=== PATIENT | male | born 1990 | race Two or more races ===

== ENCOUNTER 2018-07-31 14:57 | Emergency (ER) | END 2018-07-31 17:25 | disposition home or self-care (01) ==

== ENCOUNTER 2018-10-24 12:48 | Emergency (ER) | payer OTHER ==
[~2018-10-24] VITALS: Ht 172.7 cm; Wt 95.5 kg
[~2018-10-24 12:48] MED LIST: AZIT250T PO; IBUP-1542 PO; ONDA8TAB14 PO; TRAM50TA2 PO
[2018-10-24 12:56] VITALS: Ht 172.7 cm; Wt 95.5 kg
[2018-10-24 14:01] VITALS: BP 136/95; PULSE 88; RESP 18
--- NOTE | 2018-10-24 15:02 | ERD ---
ER Documentation Chief Complaint Chief Complaint N/V AND ABD PAIN WITH GLUCOSE 56 UPON RESCUE ARRIVAL HPI Patient is a 28-year-old male with stomach issues who presents with low blood sugar. The patient was brought in by ambulance. He was at work and felt nauseous and then had one episode of vomiting. His symptoms got worse and then he passed out and fell to his buttocks. He did eat breakfast this morning but no lunch. His blood sugar was 56 per paramedics and they gave him oral glucose. He does have a primary doctor. ROS All systems reviewed and are negative except as per history of present illness. Medications Home Meds Active Scripts Tramadol HCl (Tramadol HCl) 50 Mg Tablet, 50 MG PO Q4 PRN for PAIN, #15 TAB Prov:PERFECTO NUNEZ MD 07/31/18 Ondansetron (Ondansetron Odt) 8 Mg Tab.rapdis, 8 MG PO Q6H PRN for NAUSEA AND/OR VOMITING, #10 TAB Prov:PERFECTO NUNEZ MD 07/31/18 Ibuprofen* (Motrin*) 600 Mg Tab, 600 MG PO Q6H PRN for PAIN AND OR ELEVATED TEMP, #30 TAB Prov:ALEXIA SHEEHAN MD 05/02/16 Azithromycin* (Zithromax*) 250 Mg Tablet, 250 MG PO .ZPACK DIRECTED, #6 TAB TAKE 500 MG (2 TABS) THE FIRST DAY THEN 250 MG (1 TAB) DAYS 2-5 Prov:ALEXIA SHEEHAN MD 05/02/16 Allergies Allergies: Coded Allergies: No Known Allergy (Unverified , 10/24/18) PMhx/Soc History of Surgery: Yes (INGUINAL HERNIA) Anesthesia Reaction: No Hx Neurological Disorder: No Hx Respiratory Disorders: No Hx Cardiac Disorders: No Hx Psychiatric Problems: No Hx Miscellaneous Medical Probl: Yes (GERD) Hx Alcohol Use: Yes (social) Hx Substance Use: Yes (marijuana) Hx Tobacco Use: Yes Smoking Status: Current every day smoker FmHx Family History: diabetes Physical Exam Vitals Vital Signs Date Temp Pulse Resp B/P (MAP) Pulse Ox O2 O2 Flow FiO2 Time Delivery Rate 10/24/18 98.0 88 18 136/95 99 Room Air 14:01 (109) 10/24/18 98.0 62 16 136/83 98 12:56 (100) Physical Exam Const: No acute distress Head: Atraumatic Eyes: Normal Conjunctiva ENT: Normal External Ears, Nose and Mouth. Neck: Full range of motion. No meningismus. Resp: Clear to auscultation bilaterally Cardio: Regular rate and rhythm, no murmurs Abd: Soft, non tender, non distended. Normal bowel sounds Skin: No petechiae or rashes Back: No midline or flank tenderness Ext: No cyanosis, or edema Neur: Awake and alert, cranial nerves II through XII intact, strength is 5 out of 5 in all 4 extremities Psych: Normal Mood and Affect Result Diagram: 10/24/18 1324 10/24/18 1324 Results 24 hrs Laboratory Tests Test 10/24/18 12:52 10/24/18 13:24 10/24/18 13:59 Bedside Glucose 91 mg/dL 100 mg/dL White Blood Count 9.0 10^3/ul Red Blood Count 5.18 10^6/ul Hemoglobin 16.2 g/dl Hematocrit 46.3 % Mean Corpuscular Volume 89.4 fl Mean Corpuscular Hemoglobin 31.3 pg Mean Corpuscular Hemoglobin Concent 35.0 g/dl Red Cell Distribution Width 12.0 % Platelet Count 226 10^3/UL Mean Platelet Volume 9.4 fl Immature Granulocytes % 0.600 % Neutrophils % 70.5 % Lymphocytes % 22.4 % Monocytes % 4.9 % Eosinophils % 0.9 % Basophils % 0.7 % Nucleated Red Blood Cells % 0.0 /100WBC Immature Granulocytes # 0.050 10^3/ul Neutrophils # 6.4 10^3/ul Lymphocytes # 2.0 10^3/ul Monocytes # 0.4 10^3/ul Eosinophils # 0.1 10^3/ul Basophils # 0.1 10^3/ul Nucleated Red Blood Cells # 0.0 10^3/ul Sodium Level 141 mmol/L Potassium Level 4.2 mmol/L Chloride Level 102 mmol/L Carbon Dioxide Level 29 mmol/L Anion Gap 10 Blood Urea Nitrogen 18 mg/dl Creatinine 0.86 mg/dl Est Glomerular Filtrat Rate mL/min > 60 mL/min Glucose Level 100 mg/dl Calcium Level 10.1 mg/dl Procedures/MDM Smoking Cessation Therapy: Pt. was lectured for greater than 3 minutes on the health risks of continued smoking and the benefits of cessation. Patient is a 28-year-old male presents with hypoglycemia. Laboratory studies were normal in the emergency department. He has no signs of stroke. He does not take insulin or other diabetic medications as he does not have a history of diabetes. The patient will be discharged at this time but will need close follow-up with his primary doctor. I encouraged him to have frequent meals throughout the day to avoid hypoglycemia in the future. Departure Diagnosis: Primary Impression: Hypoglycemia Condition: Fair Patient Instructions: Hypoglycemia, Non Diabetic Referrals: Dr. Avina Additional Instructions: Call your primary care doctor TOMORROW for an appointment during the next 1-2 days.See the doctor sooner or return here if your condition worsens before your appointment time. ALEXIA SHEEHAN MD Oct 24, 2018 15:02
== END 2018-10-24 14:31 | disposition home or self-care (01) ==
LOC: E/R 12:48
DX: E16.2 Hypoglycemia, unspecified (principal); F17.210 Nicotine dependence, cigarettes, uncomplicated
CPT/HCPCS: 80048; 82962; 85025; Z7502; 99283

== ENCOUNTER 2019-05-04 11:03 | Emergency (ER) | payer OTHER ==
[~2019-05-04] VITALS: Ht 172.7 cm; Wt 100.3 kg
[~2019-05-04 11:03] MED LIST changes: +BEN25 PO; +BUTA1CAP38 PO; +HYDR-3029 PO
[2019-05-04 11:11] VITALS: Ht 172.7 cm; Wt 100.3 kg
[2019-05-04] MEDS ORDERED: DIPHENHYDRAMINE 50 MG INJ IV STA (12:46)
[2019-05-04] MEDS ORDERED: KETOROLAC 30 MG INJ IV STA (12:46)
[2019-05-04] MEDS ORDERED: ONDANSETRON 4 MG INJ IV STA (12:46)
[2019-05-04] MEDS ORDERED: SOD CHLORIDE 0.9% 1,000 ML IV STA (12:46)
[2019-05-04 15:29] VITALS: BP 167/102; PULSE 67; RESP 17
== END 2019-05-04 15:29 | disposition home or self-care (01) ==
LOC: FTE 11:03
DX: R51 Headache (principal); Z87.891 Personal history of nicotine dependence
CPT/HCPCS: 36415; 70450; 80053; 85025; 85651; 96374; 96375; J1200; J1885; J2405; J7030; Z7502